=== PATIENT | male | born 1960 | race Caucasian/White ===

== ENCOUNTER 2018-02-16 23:24 | Inpatient (IN) ==
--- NOTE | 2018-02-16 23:43 | Emergency Department Note ---
Disposition Clinical Impression: Cellulitis, Lower extremity edema, Maintenance chemotherapy Disposition: Admitted As Inpatient Condition: Undetermined General Adult HPI - General Chief complaint: ED Extremity Problem,Nontraumatic Stated complaint: PCP sent for multiple complaints Time Seen by Provider: 02/16/18 23:28 Source: patient Limitations: no limitations - History of Present Illness Pain Scale: 0 - Related Data Home Medications Medication Instructions Recorded Confirmed Apixaban [Eliquis] 5 mg PO BID 02/17/18 02/17/18 Enalapril Maleate [Vasotec] 5 mg PO BID 02/17/18 02/17/18 Erlotinib HCl [Tarceva] 100 mg PO DAILY 02/17/18 02/17/18 Gabapentin [Neurontin] 600 mg PO TID PRN 02/17/18 02/17/18 HYDROcodone/Acet 5/325 mg [[place] 1 - 2 tab PO Q4-6H PRN 02/17/18 02/17/18 5-325 mg] LORazepam [Ativan] 1 mg PO DAILY PRN 02/17/18 02/17/18 Sulfamethoxazole/Trimeth DS 1 tab PO BID 02/17/18 02/17/18 [Bactrim Ds] Valacyclovir HCl [Valtrex] 1,000 mg PO Q12H PRN 02/17/18 02/17/18 Allergies Allergy/AdvReac Type Severity Reaction Status Date / Time acetaminophen [From Percocet] Allergy Itching Verified 02/16/18 23:30 Oxycodone [From Percocet] Allergy Itching Verified 02/16/18 23:30 Penicillins Allergy Hives Verified 02/16/18 23:30 cisplatin AdvReac See Verified 02/16/18 23:30 Comments Past Medical History - Past Medical History Medical history: Reports: cancer, cardiomyopathy Psychiatric history: Reports: anxiety, depression - Social History Smoking Status: Former smoker Alcohol use: Reports: rarely Drug use: Reports: none Physical Exam - General Limitations: no limitations General appearance: alert, in no apparent distress Course Vital Signs Temperature 98.0 F 02/16/18 23:30 Pulse Rate 129 02/16/18 23:30 Respiratory Rate 18 02/16/18 23:30 Blood Pressure 108/65 02/16/18 23:30 O2 Sat by Pulse Oximetry 100 02/16/18 23:30 Temperature 97.8 F 02/17/18 14:39 Pulse Rate 76 02/17/18 14:39 Respiratory Rate 14 02/17/18 14:39 Blood Pressure 103/60 02/17/18 14:39 O2 Sat by Pulse Oximetry 92 02/17/18 14:39 Oxygen Delivery Oxygen Delivery Room Air Medical Decision Making - Lab Data Result diagrams: 02/17/18 00:05 02/17/18 00:05 Lab Results 02/17/18 02/17/18 02/17/18 Range/Units 00:05 00:05 00:05 WBC 9.6 (4.3-11.1) K/mcL RBC 4.79 (4.19-5.50) M/mcL Hgb 14.3 (12.9-16.9) g/dL Hct 42.9 (37.5-50.1) % MCV 89.6 (83.0-100.0) fL MCH 29.9 (28.0-33.3) pg MCHC 33.3 (31.6-35.5) g/dL RDW 13.2 (11.5-14.5) % Plt Count 215 (140-400) K/mcL MPV 10.0 (9.4-12.4) fL Immature Gran % 0.7 (0-4) % Seg Neutrophils % 69.7 % Lymphocytes % 16.6 % Monocytes % 8.7 % Eosinophils % 3.3 % Basophils % 1.0 % Neutrophils # 6.7 (1.6-8.9) K/mcL Lymphocytes # 1.6 (0.6-4.6) K/mcL Monocytes # 0.8 (0.0-1.3) K/mcL Eosinophils # 0.3 (0.0-0.6) K/mcL Basophils # 0.1 (0.0-0.2) K/mcL Sodium 136 (136-145) mEq/L Potassium 3.9 (3.5-5.1) mEq/L Chloride 100 (98-107) mEq/L Carbon Dioxide 28 (23-29) mEq/L BUN 14 (6-20) mg/dL Creatinine 1.23 (0.70-1.30) mg/dL Est GFR ( Amer) > 60 (> 60) Est GFR (Non-Af Amer) > 60 (> 60) BUN/Creatinine Ratio 11 (6-26) Glucose 106 H (70-105) mg/dL Calculated Osmolality 283 (280-300) Lactic Acid 1.3 (0.5-2.2) mmol/L Calcium 9.6 (8.6-10.3) mg/dL Attestation Statement - Attestation Attestation: I examined this patient and my medical decision-making was reviewed with the Resident Physician. I agree with the documented findings, disposition and treatment plan as described except to the extent set forth below. Face to face time provided Patient to ED at the recommendation of his PCP. Recent wound cx + for MRSA. Patient currently taking antibiotics. Patient has localized cellulitis to the medial aspect of her left ankle and medial aspect of right elbow.
[2018-02-16] MEDS ORDERED: *HR* Morphine Immed Rel 30 MG TABLET PO STA (23:47)
[2018-02-16] MEDS ORDERED: 0.9 % Sodium Chloride 1,000 ML IVC ONE (23:47)
[2018-02-16] MEDS ORDERED: Isovue-370 500 ML INFUS..BTL IV ONE (23:47)
--- NOTE | 2018-02-16 23:50 | Emergency Department Note ---
Disposition Clinical Impression: Lower extremity edema, Maintenance chemotherapy Cellulitis Qualifiers: Site of cellulitis: extremity Site of cellulitis of extremity: lower extremity Laterality: left Qualified Code(s): L03.116 - Cellulitis of left lower limb Disposition: Admitted As Inpatient Condition: Undetermined Referrals: Francesco Denton MD [Primary Care Provider] - Forms: ED Satisfaction Letter Time of Disposition: 02:25 Extremity Problem HPI - General Chief complaint: ED Extremity Problem,Nontraumatic Stated complaint: PCP sent for multiple complaints Time Seen by Provider: 02/16/18 23:28 Source: patient Mode of arrival: private vehicle Limitations: no limitations Nursing Notes Reviewed: Yes Vital Signs Reviewed: Yes - History of Present Illness HPI Narrative: 57-year-old male with history of non-small cell carcinoma taking daily chemotherapy arrives to the emergency department after scraping his left leg on a rock. The patient states that he developed abscesses across his body including right elbow, left lower extremity. The worse is in his left ankle where his injury occurred. The patient PCP perform a culture of the wounds and was noted to be MRSA positive. The patient is noted to be mildly febrile at home with chills and generalized weakness. The patient is noted to be tachycardic upon arrival to the emergency department. The patient was sent by PCP 2 admitted with IV anabiotic's. The patient denies any other complaints. He is supposed to receive an MRI in 24 hours for an evaluation with concern for possible abscess in his left lower extremity ankle bone. Patient denies any other complaints at this time. He is resting comfortably and able to ambulate with crutches. The patient does obvious swelling in left lower extremity and multiple draining abscesses across his body. Pain Scale: 0 - Related Data Allergies Allergy/AdvReac Type Severity Reaction Status Date / Time acetaminophen [From Percocet] Allergy Itching Verified 02/16/18 23:30 Oxycodone [From Percocet] Allergy Itching Verified 02/16/18 23:30 Penicillins Allergy Hives Verified 02/16/18 23:30 cisplatin AdvReac See Verified 02/16/18 23:30 Comments All systems ED: reviewed and negative except as stated. Constitutional: Reports: chills, weakness. Denies: fever ENT ED: Denies: dysphagia Cardiovascular: Denies: chest pain Respiratory: Denies: dyspnea Gastrointestinal: Denies: abdominal pain Genitourinary: Denies: urgency, dysuria Musculoskeletal: Reports: joint swelling, arthralgia, myalgia. Denies: back pain, neck pain Integumentary: Reports: lesions. Denies: rash Neurological: Denies: headache, numbness, paresthesias Past Medical History - Past Medical History Attestation: Yes The following information was validated with the patient. Source: patient, old records reviewed Medical history: Reports: cancer, cardiomyopathy Surgical history: Reports: non-contributory Psychiatric history: Reports: anxiety, depression - Social History Smoking Status: Former smoker Alcohol use: Reports: rarely Drug use: Reports: none Physical Exam - General Limitations: no limitations General appearance: alert, in no apparent distress - Head Head exam: atraumatic, normocephalic, normal inspection - Eye Eye exam: Present: normal appearance, PERRL, EOMI - ENT ENT exam: normal exam, normal oropharynx, mucous membranes moist - Neck Neck exam: Present: normal inspection, full ROM, trachea midline - Chest Chest inspection: Present: normal inspection, symmetric chest wall rise - Respiratory Respiratory exam: Present: normal lung sounds bilaterally - Cardiovascular Cardiovascular exam: Present: normal rhythm, tachycardia, normal heart sounds - Abdominal Exam Abdominal exam: Present: soft, Non-Tender. Absent: tenderness, distention, guarding, rebound, rigidity - Extremities Exam Extremities exam: Present: full ROM, tenderness (Left ankle) - Neurological Exam Neurological exam: Present: alert, oriented X3 - Skin Skin exam: Present: warm, dry, intact, normal color, other (Patient has multiple abscesses across bilateral upper and lower extremities. All of her training at this time. Mild tenderness noted. Overlying cellulitis noted. No drainable abscess that is noted. Patient has ecchymosis and erythema to left ankle with lesions noted on the medial aspect.) Course Vital Signs Temperature 98.0 F 02/16/18 23:30 Pulse Rate 129 02/16/18 23:30 Respiratory Rate 18 02/16/18 23:30 Blood Pressure 108/65 02/16/18 23:30 O2 Sat by Pulse Oximetry 100 02/16/18 23:30 Temperature 97.8 F 02/16/18 23:50 Pulse Rate 76 02/17/18 01:22 Respiratory Rate 18 02/17/18 01:22 Blood Pressure 105/58 02/17/18 01:22 O2 Sat by Pulse Oximetry 95 02/17/18 01:22 Oxygen Delivery Oxygen Delivery Room Air Extremity Problem, Nontraumati - MDM Narrative Medical decision making narrative: Patient's workup in the emergency department demonstrates concerning findings for cellulitis. The patient appears septic as he is tachycardic and has had a fever at home. The patient has a source with concern for cellulitis of right elbow, left ankle, left lower extremity. Patient has a large amount of swelling noted as well. The patient CT scan of his left lower extremity demonstrates no signs of osteomyelitis both concern for abscess versus phlegmon. Given the lack of fluid on visualization, this is likely phlegmon. The patient was administered vancomycin IV here in the emergency department with known cultures to reveal MRSA. The patient had blood cultures performed. Lactate was within normal limits. Given the patient's vital signs and a source of infection combined with positive MRSA wound cultures and the fact the patient is currently on chemotherapy, we will admit the patient to the hospital to receive IV anabiotic's overnight. The patient agrees to plan of care. No further questions or concerns noted at this time, accepted by Dr. Alegria. - Lab Data Lab results reviewed: Yes I reviewed the patient's lab results. Result diagrams: 02/17/18 00:05 02/17/18 00:05 Lab Results 02/17/18 02/17/18 02/17/18 Range/Units 00:05 00:05 00:05 WBC 9.6 (4.3-11.1) K/mcL RBC 4.79 (4.19-5.50) M/mcL Hgb 14.3 (12.9-16.9) g/dL Hct 42.9 (37.5-50.1) % MCV 89.6 (83.0-100.0) fL MCH 29.9 (28.0-33.3) pg MCHC 33.3 (31.6-35.5) g/dL RDW 13.2 (11.5-14.5) % Plt Count 215 (140-400) K/mcL MPV 10.0 (9.4-12.4) fL Immature Gran % 0.7 (0-4) % Seg Neutrophils % 69.7 % Lymphocytes % 16.6 % Monocytes % 8.7 % Eosinophils % 3.3 % Basophils % 1.0 % Neutrophils # 6.7 (1.6-8.9) K/mcL Lymphocytes # 1.6 (0.6-4.6) K/mcL Monocytes # 0.8 (0.0-1.3) K/mcL Eosinophils # 0.3 (0.0-0.6) K/mcL Basophils # 0.1 (0.0-0.2) K/mcL Sodium 136 (136-145) mEq/L Potassium 3.9 (3.5-5.1) mEq/L Chloride 100 (98-107) mEq/L Carbon Dioxide 28 (23-29) mEq/L BUN 14 (6-20) mg/dL Creatinine 1.23 (0.70-1.30) mg/dL Est GFR ( Amer) > 60 (> 60) Est GFR (Non-Af Amer) > 60 (> 60) BUN/Creatinine Ratio 11 (6-26) Glucose 106 H (70-105) mg/dL Calculated Osmolality 283 (280-300) Lactic Acid 1.3 (0.5-2.2) mmol/L Calcium 9.6 (8.6-10.3) mg/dL - Radiology Data Radiology results reviewed: Yes I reviewed the patient's radiology results. Lower Extremity CT 02/17/18 23:47 IMPRESSION: 1. No radiographic evidence for osteomyelitis. 2. The tiny low-attenuation focus in the superficial subcutaneous tissues overlying the medial malleolus could represent abscess or phlegmon. 3. There is a metallic foreign body in the plantar surface of the calcaneus. D/ / Olegario Montoya MD / Olegario Montoya MD Interpreting Provider: Olegario Montoya MD
[2018-02-17 00:22] LABS: Basophils # 0.1 K/mcL (0.0-0.2); Eosinophils # 0.3 K/mcL (0.0-0.6); Eosinophils % 3.3 %; Hematocrit 42.9 % (37.5-50.1); Hemoglobin 14.3 g/dL (12.9-16.9); Immature Granulocytes % 0.7 % (0-4); Lymphocytes # 1.6 K/mcL (0.6-4.6); Lymphocytes % 16.6 %; Mean Corpuscular HGB Conc 33.3 g/dL (31.6-35.5); Mean Corpuscular Hemoglobin 29.9 pg (28.0-33.3); Mean Corpuscular Volume 89.6 fL (83.0-100.0); Monocytes # 0.8 K/mcL (0.0-1.3); Monocytes % 8.7 %; Neutrophils # 6.7 K/mcL (1.6-8.9); Platelet Count 215 K/mcL (140-400); Red Blood Count 4.79 M/mcL (4.19-5.50); Red Cell Distribution Width 13.2 % (11.5-14.5); Segmented Neutrophils % 69.7 %
[2018-02-17 00:39] LABS: BUN/Creatinine Ratio 11 (6-26); Blood Urea Nitrogen 14 mg/dL (6-20); Calcium 9.6 mg/dL (8.6-10.3); Carbon Dioxide 28 mEq/L (23-29); Chloride 100 mEq/L (98-107); Glucose 106 mg/dL (70-105); Osmolality,Calculated 283 (280-300); Potassium 3.9 mEq/L (3.5-5.1); Sodium 136 mEq/L (136-145); eGFR For Non-African Americans > 60 (> 60)
[2018-02-17] MEDS ORDERED: Levofloxacin 750 MG/150 ML 750 MG/150 ML BAG IVPB ONE (02:23)
[2018-02-17] MEDS ORDERED: Naloxone 0.4 MG/ML INJ IVP PRN (04:39)
[2018-02-17] MEDS ORDERED: Acetaminophen 325 MG TABLET PO PRN (04:39)
[2018-02-17] MEDS: traMADol 50 MG TABLET PO PRN ×3 (05:01→19:42)
[2018-02-17] MEDS ORDERED: *HR* OxyCODONE/APAP 5/325 TABLET PO PRN (08:10)
[2018-02-17] MEDS ORDERED: Fluticasone Propionate Nasal 50 MCG/SPRAY BOTTLE NS PRN (08:10)
[2018-02-17] MEDS: Gabapentin 300 MG CAPSULE PO SCH ×3 (09:28→21:20)
[2018-02-17] MEDS: FLUoxetine 20 MG CAPSULE PO SCH (09:28)
[2018-02-17] MEDS: Apixaban 5 MG TABLET PO SCH ×2 (09:29→21:20)
--- NOTE | 2018-02-17 11:15 | Internal Med History&Physical ---
Date of Encounter: 02/17/18 Time of Encounter: 08:20 Internal Medicine - H&P: HPI Chief complaint: Multiple skin abscesses Admitted From: Emergency Dept Plans for Post Hospital Care: Home History of present illness: Mr. Barajas is a 57 year old male with non-small cell carcinoma who is on chemotherapy with Tarceva presented to the emergency department after having failed outpatient antibiotic treatment for multiple boils in his upper and lower extremities. Patient states that he developed abscesses on the right elbow left lower extremity, lateral thigh, medial ankle which started roughly about 2 weeks ago. Some of them broke and started draining. He sought help from his primary care physician on Tuesday who was really concerned about left lower extremity abscess. He was started on oral Bactrim which she has been taking since Tuesday but his abscesses continued to get worse. His erythema around the abscesses have now worsened and he also had a fever at home which she states was 101. In the ER when he presented he was initially tachycardic on arrival and he was started on IV Levaquin and vancomycin. When he saw his primary care physician on Tuesday he also had a culture drawn from the abscess on the left medial ankle after a started draining and it grew MRSA. The patient to his knowledge does not have a history of MRSA and this is the first time this has happened. He denied any new chills but does claim of some lethargy and fatigue. He denies any chest pain, shortness of breath, headaches, He does state that most of these lesions are very painful and rated his pain level at 8/10 defined a sharp pain upon touching any of these wounds and no other aggravating or relieving factors Past Med Surg Social Fam HX - Past Medical History Medical history: cancer, cardiomyopathy Additional medical history: lung cancer Psychiatric history: anxiety, depression - Past Surgical History Surgical History: non-contributory - Social History Smoking Status: Former smoker Alcohol use: rarely Drug use: none - Additional Family History Additional family history: No significant family history of skin boils in other family members Internal Medicine - H&P: Meds Apixaban [Eliquis] 5 mg PO BID 02/17/18 [History] Enalapril Maleate [Vasotec] 5 mg PO BID 02/17/18 [History] Erlotinib HCl [Tarceva] 100 mg PO DAILY 02/17/18 [History] Gabapentin [Neurontin] 600 mg PO TID PRN 08/24/18 [History] HYDROcodone/Acet 5/325 mg [[place] 5-325 mg] 1 - 2 tab PO Q4-6H PRN 02/17/18 [ History] LORazepam [Ativan] 1 mg PO DAILY PRN 02/17/18 [History] Sulfamethoxazole/Trimeth DS [Bactrim Ds] 1 tab PO BID 02/17/18 [History] Valacyclovir HCl [Valtrex] 1,000 mg PO Q12H PRN 02/17/18 [History] 3 Allergy/AdvReac Type Severity Reaction Status Date / Time acetaminophen [From Percocet] Allergy Itching Verified 02/16/18 23:30 Oxycodone [From Percocet] Allergy Itching Verified 02/16/18 23:30 Penicillins Allergy Hives Verified 02/16/18 23:30 cisplatin AdvReac See Verified 02/16/18 23:30 Comments All Systems PM: A 10-system review of systems was performed and is negative for pertinent findings except as documented above in the HPI. - Constitutional Vitals: Temp Pulse Resp BP Pulse Ox 98.0 F 82 16 114/71 95 02/17/18 10:17 02/17/18 10:17 02/17/18 10:17 02/17/18 10:17 02/17/18 10:17 Exam: GENERAL: Alert, moderate distress, cooperative EYES: PERRLA, EOMI EARS: External ears normal, canals clear Skin exam-multiple abscesses/surrounding cellulitis areas most prominent in the left lower extremity. Major ones are on the medial left ankle which is surrounded by a 6 cm of erythema and indurated skin which is warm to touch, and other abscess did on the lateral aspect of the left lower extremity. Most of them have scab on top of it and the patient states these have already drained Right upper extremity bandaged but clear oozing can be seen from through the bandage. Not removed due to patient preference OROPHARYNX: Lips, mucosa, and tongue normal. Teeth and gums normal. Oropharynx normal. NECK: No jugulovenous distention, No carotid bruits, Carotid pulse normal contour, Supple LUNGS: Lungs clear to auscultation, Good diaphragmatic excursion CARDIAC: Normal S1 and S2; no rubs, murmurs, or gallops ABDOMEN: Abdomen soft, non-tender, BS normal, No masses or organomegaly EXTREMITIES: See details above NEURO: . Reflexes normal and symmetric. Sensation grossly intact, Cranial nerves II-XII intact PULSES: 2+ radial, 2+ carotid Rest of the exam is non contributory Internal Med - H&P Results - Labs CBC & Chem 7: 02/17/18 00:05 02/17/18 00:05 - Impressions ITS Impressions Lower Extremity CT 02/17/18 23:47 IMPRESSION: 1. No radiographic evidence for osteomyelitis. 2. The tiny low-attenuation focus in the superficial subcutaneous tissues overlying the medial malleolus could represent abscess or phlegmon. 3. There is a metallic foreign body in the plantar surface of the calcaneus. D/ / Olegario Montoya MD / Olegario Montoya MD Interpreting Provider: Olegario Montoya MD - Diagnostic Studies Other Images Status: image reviewed by me (CT scan of the left lower extremity without contrast. No definitive evidence for osteomyelitis and small phlegmon over the left medial malleolus) - Assessment and plan (1) Infection of skin due to methicillin resistant Staphylococcus aureus (MRSA) Current Visit: Yes Status: Acute Assessment and plan: Patient has multiple skin abscesses and one of them has already grown MRSA as an outpatient on a culture. he has been placed on Bactrim as an outpatient since Tuesday but has failed 4 days of oral outpatient therapy and has now been admitted for IV antibiotics He initially presented with tachycardia but normal lactic acid and a fever which was documented at home but not in the ER blood cultures have been sent and antibiotics-vancomycin IV has been started. Consult pharmacy for dosing. I will also obtain ID consult given the patient's immunocompromised status to further tailor his antibiotic regimen. Off note to be not only have to treat him in house but he may need outpatient suppressive therapy because he will continue to be immunocompromised (2) Cellulitis Current Visit: Yes Status: Acute Assessment and plan: See plan above Qualifiers: Site of cellulitis: extremity Site of cellulitis of extremity: lower extremity Laterality: left Qualified Code(s): L03.116 - Cellulitis of left lower limb (3) Maintenance chemotherapy Current Visit: Yes Status: Acute Assessment and plan: History of non-small cell lung cancer. He is on daily outpatient Tarceva. I will hold it for right now due to acute multiple abscesses and he may need to resume it as an outpatient. - Time Spent With Patient Total time spent is greater than 50% in coordination of care (as documented) at patient's floor/unit and/or counseling patient: Greater than 35 minutes
[2018-02-17] MEDS ORDERED: *HR* FentaNYL (PF) 100 MCG/2 ML VIAL IVP STA (13:47)
[2018-02-17] MEDS ORDERED: Ondansetron 4 MG/2 ML VIAL IVP STA (13:47)
--- NOTE | 2018-02-17 14:35 | Event Note ---
Date of Encounter: 02/17/18 Time of Encounter: 14:28 Mr Barajas is a 57 year old male with a history of non-small cell lung cancer. He reported that it was in remession, but recently he has had a 40 lb weight-loss without explanation. He presented on 02/17/2018 with multiple abscess in varying degree (5 total, 2 on the medial and lateral left ankle, one on left upper lateral thigh, one on the left lateral calf, and one on the right mid proximal forearm near the elbow). Surgery was consulted for an I&D of this area only and therefore an event note is placed. Surveillance of the remaining for areas notes cellulitis and scabs but no fluctuance. ABSCESS INCISION AND DRAINAGE NOTE INDICATION: Abscess manifested as a tender, swollen fluctuant mass in the superficial subcutaneous tissue. INFORMED CONSENT: The risks and benefits of the procedure including incomplete drainage, scarring, infection and bleeding was explained and the patient verbalized their understanding and wished to proceed with the procedure. PROCEDURE: The area of greatest fluctuance was identified, prepped, and draped in a sterile fashion. Local anesthetic (10 MLs of 2% lidocaine) was introduced subcutaneously over the area of greatest fluctuance. A linear incision was then made over the area of greatest fluctuance, with immediate return of a large amount of purulent material. The wound was explored with a hemostat to break up loculations and irrigated with 40MLs saline solution. Once the wound was explored, cleaned, and irrigated, 1/4 inch iodoform gauze packing was placed loosely in the wound. A dressing was then applied. FINDINGS: Purulent drainage. EBL: <5 mL COMPLICATIONS: None. Daily Wound Care: remove dressing and packing. Wash with antibacterial soap. Repack with 1/4 inch iodoform gauze on 02/18 and 02/19. Begin packing with 1/4 inch plain gauze on 02/20/2018. Antibiotic management and further clinical course per primary team. Surgery will sign off at this time. If patient is discharged prior to Tuesday02/20/2018, he can follow-up in the office with Radha Vernon on 02/28/2018 at 3:30 PM. Signature: Radha Vernon, ALPHONSO, WORK[employer] COMPENSATION COORDINATOR-C
--- NOTE | 2018-02-17 14:55 | Infectious Disease Consult ---
Date of Encounter: 02/17/18 Time of Encounter: 14:00 Assessment and Plan (1) Abscess Status: Acute Assessment and plan: Location: RUE. Causative organism: likely MRSA. Recommend general surgery to evaluate for possible I & D. Continue Vancomycin IV. Pharmacy to dose. Goal trough ~15. (2) Cellulitis Status: Acute Assessment and plan: Location: Left ankle. Causative organism: MRSA. Likely secondary to recent traumatic injury and immunosuppression. CT of the LE showed findings consistent with cellulitis and abscess vs. phlegmon. Check ESR and CRP. Consult Podiatry. Continue Vancomycin IV. Pharmacy to dose. Goal trough ~15. Duration of treatment depends on the clinical picture. Monitor renal function and for drug toxicity and dose-adjust antibiotics. Qualifiers: Site of cellulitis: extremity Site of cellulitis of extremity: lower extremity Laterality: left Qualified Code(s): L03.116 - Cellulitis of left lower limb (3) Maintenance chemotherapy Status: Acute (4) Lung cancer Status: Acute Assessment and plan: Non-small cell lung cancer diagnosed in 2007. Currently on maintenance oral Terceva. Imaging in April negative for mets. Qualifiers: Laterality: unspecified laterality Lung location: unspecified part of lung Qualified Code(s): C34.90 - Malignant neoplasm of unspecified part of unspecified bronchus or lung Infectious Disease HPI - Data of Consult Patient: new to practice Consult date: 02/17/18 Requesting Physician: Celso Alegria MD Primary Care Provider: Francesco Denton MD - Consult Narrative Reason for consult: Abscesses History of present illness: Mr. Barajas is a 57 year old male with a past medical history of non-small cell lung cancer diagnosed back in 2007 who follows at the [facility] currently on daily oral Tarceva, cardiomyopathy, peripheral neuropathy secondary to chemotherapy, anxiety, and depression. The patient was admitted to the hospital February 16 for abscess to the left ankle and right elbow. We are consulted February 17 for further antibiotic recommendations. Briefly, the patient a 57-year-old male with past medical history as stated above. He sustained an injury to the left ankle last week while in [place] and developed an abscess and erythema to the medial aspect of the left ankle as well as a smaller area to the anterior aspect of the left ankle. Around the same time, he developed an abscess to the right upper arm as well. He states he saw his PCP on Tuesday to cultures to the left ankle wounds and they grew out MRSA. He was started on Bactrim on Tuesday as well, but has had progression of his symptoms and was advised by his PCP to come to the ER for evaluation. Upon arrival to the ER, the patient was afebrile. He was tachycardic, but otherwise hemodynamically stable. He had a CT of the left lower extremity that was negative for osteomyelitis, but did show a possible abscess versus phlegmon over the medial malleolus as well as a foreign body to the plantar aspect of the calcaneus. Blood cultures were obtained 2 sets and are pending. He is given Vanco and Levaquin and admitted to the hospital for further evaluation. The patient has remained afebrile hemodynamically stable. His white blood cell count is normal. Lactic acid is 1.3. Currently, he is on IV vancomycin. We have been asked to evaluate and make further recommendations. During my exam today, the patient endorsed a history as stated above. He denies any fevers or chills or rigors. He denies any headache or neck pain. He denies any congestion, earache, or sore throat. He denies any chest pain, shortness of breath, or cough. He denies any nausea, vomiting, diarrhea, or constipation. He denies abdominal pain or urinary complaints and states his appetite is okay. He does report that the left ankle joint is swollen and painful. He denies any purulent drainage from the left ankle lesion and states scabbed most the time. He does report pain to the abscess of the right upper extremity, but denies pain in the elbow joint. He reports purulent drainage from that abscess as well. He denies any oral thrush or additional skin lesions. He lives at home alone. He is disabled and does not work outside the home. He denies any recent travel except to [place] where the injury occurred. He states he is up-to-date on his tetanus shot. He denies any known infectious diseases. He denies any pet or animal exposure to the affected areas. Denies Tobacco, alcohol, or illicit drug use. CC: Celso Alegria MD Past Med Surg Social Fam HX - Past Medical History Attestation: Yes The following information was validated with the patient. Source: patient, old records reviewed Medical history: cancer (Non-small cell lung cancer), cardiomyopathy Additional medical history: lung cancer Psychiatric history: anxiety, depression - Past Surgical History Surgical History: non-contributory - Social History Smoking Status: Former smoker Alcohol use: rarely Drug use: none Occupational status: disabled Current living situation: Home - Independent Activity Level: Independent ambulation Recent Out of Country Travel Within the Last 8 Weeks: No Exposure or Possible Exposure to Illness During Travel: No Infectious Disease-CN:Meds Apixaban [Eliquis] 5 mg PO BID 02/17/18 [History] Enalapril Maleate [Vasotec] 5 mg PO BID 02/17/18 [History] Erlotinib HCl [Tarceva] 100 mg PO DAILY 02/17/18 [History] Gabapentin [Neurontin] 600 mg PO TID PRN 02/17/18 [History] HYDROcodone/Acet 5/325 mg [[place] 5-325 mg] 1 - 2 tab PO Q4-6H PRN 02/17/18 [ History] LORazepam [Ativan] 1 mg PO DAILY PRN 02/17/18 [History] Sulfamethoxazole/Trimeth DS [Bactrim Ds] 1 tab PO BID 02/17/18 [History] Valacyclovir HCl [Valtrex] 1,000 mg PO Q12H PRN 02/17/18 [History] 3 Allergy/AdvReac Type Severity Reaction Status Date / Time acetaminophen [From Percocet] Allergy Itching Verified 02/16/18 23:30 Oxycodone [From Percocet] Allergy Itching Verified 02/16/18 23:30 Penicillins Allergy Hives Verified 02/16/18 23:30 cisplatin AdvReac See Verified 02/16/18 23:30 Comments All systems: reviewed and no additional remarkable complaints except as stated Exam - Constitutional Vitals: Temp Pulse Resp BP Pulse Ox 97.8 F 76 14 103/60 92 02/17/18 14:39 02/17/18 14:39 02/17/18 14:39 02/17/18 14:39 02/17/18 14:39 General appearance: average body habitus, cooperative, no acute distress - Head Head exam: Present: atraumatic, normal inspection, normocephalic - Eye Eye exam: Present: EOMI, normal appearance, PERRL Pupils: Present: normal accommodation - ENT ENT exam: Present: mucous membranes moist - Neck Neck exam: Present: normal inspection - Respiratory Respiratory exam: Present: CTAB. Absent: rales, respiratory distress, rhonchi, wheezes - Cardiovascular Cardiovascular exam: Present: RRR, +S1, +S2 - GI/Abdominal GI/Abdominal exam: Present: normal bowel sounds, soft. Absent: distended, tenderness - Extremities Exam Extremities exam: Present: joint swelling (left ankle), pedal edema (1+ LLE), tenderness (left ankle) Additional comments: Abscess noted to the RUE with purulent drainage and surrounding erythema. Scabbed lesion with surrounding erythema noted to the medial aspect of the left ankle. Pinpoint scabbed lesion with very mild erythema noted to the anterior aspect of the left ankle. ROM of the left ankle painful. No foot erythema. - Neurological Exam Neurological exam: Present: alert, oriented X3, no focal deficits - Psychiatric Psychiatric exam: Present: normal affect, normal mood - Skin Skin exam: Present: dry, intact, normal color, warm Infectious Disease CN: Results - Labs CBC & Chem 7: 02/17/18 00:05 02/17/18 00:05 - VTE Reasons for not Prescribing Prophylaxis: Not indicated-Anticoagulated or INR therapeutic Consult Discharge Plan - Plan Referrals: Francesco Denton MD [Primary Care Provider] -
[2018-02-17] MEDS ORDERED: Gadolinium Contrast Agent (WT Based) IV PRN (15:06)
--- NOTE | 2018-02-17 17:18 | Podiatry Consult Note ---
Date of Encounter: 02/17/18 Time of Encounter: 17:00 Assessment and Plan (1) Cellulitis Current visit: Yes Status: Acute Qualifiers: Site of cellulitis: extremity Site of cellulitis of extremity: lower extremity Laterality: left Qualified Code(s): L03.116 - Cellulitis of left lower limb (2) Abscess Current visit: Yes Status: Acute Patient seen and examined at bedside left medial ankle wound present x 3 weeks There is associated edema erythema warmth and pain associated with wound MRSA + and in isolation CT as noted below per physical exam possible abscess vs hematoma to site Continue current IV antibiotic therapy MRI ordered to further assess Apply adaptic 4x4 and kerlix to wound for comfort ID on board and managing antibiotic therapy. History of Present Illness HPI: Mr. Barajas is a 57 year old male Past Med Surg Social Fam HX - Past Medical History Medical history: cancer (Non-small cell lung cancer), cardiomyopathy Additional medical history: lung cancer Psychiatric history: anxiety, depression - Past Surgical History Surgical History: non-contributory - Social History Smoking Status: Former smoker Alcohol use: rarely Drug use: none Medications and Allergies Apixaban [Eliquis] 5 mg PO BID 02/17/18 [History] Enalapril Maleate [Vasotec] 5 mg PO BID 02/17/18 [History] Erlotinib HCl [Tarceva] 100 mg PO DAILY 02/17/18 [History] Gabapentin [Neurontin] 600 mg PO TID PRN 02/17/18 [History] HYDROcodone/Acet 5/325 mg [[place] 5-325 mg] 1 - 2 tab PO Q4-6H PRN 02/17/18 [ History] LORazepam [Ativan] 1 mg PO DAILY PRN 02/17/18 [History] Sulfamethoxazole/Trimeth DS [Bactrim Ds] 1 tab PO BID 02/17/18 [History] Valacyclovir HCl [Valtrex] 1,000 mg PO Q12H PRN 02/17/18 [History] 3 Allergy/AdvReac Type Severity Reaction Status Date / Time acetaminophen [From Percocet] Allergy Itching Verified 02/16/18 23:30 Oxycodone [From Percocet] Allergy Itching Verified 02/16/18 23:30 Penicillins Allergy Hives Verified 02/16/18 23:30 cisplatin AdvReac See Verified 02/16/18 23:30 Comments All Systems Reviewed: The remainder of the systems were reviewed and are negative Physical Exam - Constitutional Vitals: Temp Pulse Resp BP Pulse Ox 97.8 F 76 14 103/60 92 02/17/18 14:39 02/17/18 14:39 02/17/18 14:39 02/17/18 14:39 02/17/18 14:39 General appearance: average body habitus, cooperative, no acute distress Results - Labs Result Diagrams: 02/17/18 00:05 02/17/18 00:05 Labs: Abnormal lab results Glucose 106 mg/dL (70-105) H 02/17/18 00:05 All other labs normal. Consult Discharge Plan - Plan Referrals: Francesco Denton MD [Primary Care Provider] -
[2018-02-18] MEDS: traMADol 50 MG TABLET PO PRN ×3 (03:45→17:26)
[2018-02-18 04:09] LABS: Basophils # 0.1 K/mcL (0.0-0.2); Basophils % 1.2 %; Eosinophils # 0.4 K/mcL (0.0-0.6); Eosinophils % 6.2 %; Hematocrit 43.6 % (37.5-50.1); Hemoglobin 14.6 g/dL (12.9-16.9); Immature Granulocytes % 0.6 % (0-4); Lymphocytes # 1.6 K/mcL (0.6-4.6); Lymphocytes % 23.6 %; Mean Corpuscular HGB Conc 33.5 g/dL (31.6-35.5); Mean Corpuscular Hemoglobin 30.9 pg (28.0-33.3); Mean Corpuscular Volume 92.2 fL (83.0-100.0); Monocytes # 0.7 K/mcL (0.0-1.3); Monocytes % 10.3 %; Platelet Count 197 K/mcL (140-400); Red Blood Count 4.73 M/mcL (4.19-5.50); Segmented Neutrophils % 58.1 %
[2018-02-18 04:26] LABS: BUN/Creatinine Ratio 12 (6-26); Blood Urea Nitrogen 12 mg/dL (6-20); Carbon Dioxide 26 mEq/L (23-29); Chloride 104 mEq/L (98-107); Glucose 99 mg/dL (70-105); Osmolality,Calculated 282 (280-300); Sodium 136 mEq/L (136-145); eGFR For Non-African Americans > 60 (> 60)
[2018-02-18] MEDS: Apixaban 5 MG TABLET PO SCH ×2 (08:00→20:05)
[2018-02-18] MEDS: Gabapentin 300 MG CAPSULE PO SCH ×3 (08:00→20:04)
[2018-02-18] MEDS: FLUoxetine 20 MG CAPSULE PO SCH (08:00)
[2018-02-18] MEDS: *HR* FentaNYL (PF) 100 MCG/2 ML VIAL IVP PRN (13:57)
--- NOTE | 2018-02-18 16:27 | Internal Med Progress Note ---
Hospitalist Progress Note - Encounter Date of Encounter: 02/18/18 Time of Encounter: 11:40 - Subjective Interval History: Reports feeling well. No fever, chills, nausea, vomiting or diarrhea. Tolerates antibiotics well. Reports mild pain in right forearm at the site of abscess drainage. - Exam Vitals: Temp Pulse Resp BP Pulse Ox 97.9 F 74 14 100/60 98 02/18/18 14:49 02/18/18 14:49 02/18/18 14:49 02/18/18 14:49 02/18/18 14:49 Exam: General: Well-developed male lying comfortably in bed in no acute distress Skin: Warm and supple Chest: Normal thoracic expansion. Normal breath sounds. Clear to auscultation. Heart: Normal S1 & S2; rhythmic. No rubs or murmurs. Abdomen: Non-distended, soft and nontender Extremities: No clubbing, cyanosis or edema. No calf tenderness. Normal distal pulses. Full ROM; right distal forearm in surgical dressing with blood-stained gauze; left distal leg in surgical dressing; Neurological: Awake, alert and oriented to person, place and time. No focal deficits. Psych: Affect appropriate. - Assessment and Plan (1) Abscess Current Visit: Yes Status: Acute Assessment and Plan: Patient is noted to have multiple cutaneous abscesses with surrounding cellulitis, at least 5 per surgery note, 4 in left lower extremity and 1 in right upper extremity. Surgery consult appreciated, status post incision and drainage of right forearm abscess. Preliminary wound culture shows staph aureus. Wound culture from February 13 sent by his PCP, grows MRSA. Infectious diseases on board. Continue IV vancomycin for now. Patient will probably need home health services set up for continued wound care. Podiatry was consulted for possible left medial ankle abscess; CT left lower extremity shows possible abscess or phlegmon. MRI of left leg has been recommended, however cannot be done due to a metallic foreign body in the plantar surface of calcaneus. (2) Cellulitis Current Visit: Yes Status: Acute (3) Essential hypertension Current Visit: Yes Status: Chronic (4) Anxiety and depression Current Visit: Yes Status: Chronic (5) Lung cancer Current Visit: Yes Status: Chronic - Time Spent with Patient Total time spent is greater than 50% in coordination of care (as documented) at patient's floor/unit and/or counseling patient: Internal Medicine: Result - Labs CBC & Chem 7: 02/18/18 03:41 02/18/18 03:41 Labs: Short CBC 02/18/18 Range/Units 03:41 WBC 6.8 (4.3-11.1) K/mcL Hgb 14.6 (12.9-16.9) g/dL Hct 43.6 (37.5-50.1) % Plt Count 197 (140-400) K/mcL Neutrophils # 4.0 (1.6-8.9) K/mcL BMP 02/18/18 03:41 Sodium 136 Potassium 4.0 Chloride 104 Carbon Dioxide 26 BUN 12 Creatinine 0.97 Glucose 99 Calcium 9.0 - VTE Reasons for not Prescribing Prophylaxis: Not indicated-Anticoagulated or INR therapeutic Consult Discharge Plan - Plan Referrals: Francesco Denton MD [Primary Care Provider] - (2) Cellulitis Qualifiers: Site of cellulitis: extremity Site of cellulitis of extremity: lower extremity Laterality: left Qualified Code(s): L03.116 - Cellulitis of left lower limb (5) Lung cancer Qualifiers: Laterality: unspecified laterality Lung location: unspecified part of lung Qualified Code(s): C34.90 - Malignant neoplasm of unspecified part of unspecified bronchus or lung
[2018-02-19] MEDS: traMADol 50 MG TABLET PO PRN ×4 (02:14→21:25)
[2018-02-19] MEDS: Gabapentin 300 MG CAPSULE PO SCH ×3 (07:14→21:25)
[2018-02-19] MEDS: Apixaban 5 MG TABLET PO SCH ×2 (07:14→21:26)
[2018-02-19] MEDS: FLUoxetine 20 MG CAPSULE PO SCH (07:14)
[2018-02-19] MEDS: *HR* FentaNYL (PF) 100 MCG/2 ML VIAL IVP PRN (09:02)
--- NOTE | 2018-02-19 11:44 | Podiatry Progress Note ---
Date of Encounter: 02/19/18 Time of Encounter: 10:25 - Assessment and Plan (1) Cellulitis Current Visit: Yes Status: Acute cellulitis, improved on abx. has lung cancer on chemotherapy Discussed with patient my findings and recommendations for treatment. discussed CT scan. Clinically there is no evidence of an abscess, edema is down and the erythema significantly resolving. He may not be able to get an MRI to confirm no abscess due to metal object in his heel, I called MRI and waiting on them to call me back but this may be the case as the patient says he was told he could not have one by someone that came to his room because of this metal object in his heel. There is clinically no abscess to drainage and the subcutaneous abnormality on CT is likely the scabbed area from his injury. Would recommend close monitoring of wounds and continued wound care with adaptic , bactroban, 4x4 gauze and kerlix changed daily. Short course of oral antibiotics for his ankle may be sufficient but will leave definitive decision to infectious disease. Qualifiers: Site of cellulitis: extremity Site of cellulitis of extremity: lower extremity Laterality: left Qualified Code(s): L03.116 - Cellulitis of left lower limb Subjective Interval history: seen for f/u of cellulitis of left LE. Says his ankle looks significantly better as far as redness and swelling and he shows me a picture on his phone. Denies feeling like he had a f/c/n/v. Says his chemotherapy is on hold. He says he has a history of MRSA. says he was told there is metal in the bottom of his heel. does not recall when he ever stepped on something. Objective - Vital Signs Vital Signs: Vital Signs Temp Pulse Resp BP Pulse Ox 02/19/18 11:09 97.9 F 66 14 104/64 97 02/19/18 08:31 98.4 F 78 16 96/65 98 02/19/18 05:20 97.6 F 73 15 97/60 97 02/18/18 19:18 97.8 F 71 14 104/63 98 02/18/18 14:49 97.9 F 74 14 100/60 98 Intake and Output 02/18/18 02/19/18 02/19/18 23:59 07:59 15:59 Intake Total 240 / 240 550 / 550 360 / 360 Output Total 0 / 0 Balance 240 / 240 550 / 550 360 / 360 Intake: IV Fluids 250 / 250 Vancocin 1,500 MG In 0.9 % 250 / 250 Sodium Chloride 250 ML @ 166.67 mls/hr IVPB Q12H [facility] Rx#: [id number] Oral 240 / 240 300 / 300 360 / 360 Output: Urine 0 / 0 Other: Meal Dinner Breakfast Percent of Meal Consumed 100% 100% # Voids 1 1 - Exam Exam: well developed and nourished male in no acute distress Capillary refill time intact all digits of the left foot. Left foot is warm to touch. There is minimal localized erythema around multiple abrasion sites of the left medial anterior ankle. There is no fluctuance. The areas are covered by a scab. There is some tenderness to touch over the scab areas. There is no purulence or drainage expressed. Sensation is intact to touch. no evicence of foreign body entry site. CT-no osteo, low attenuation subcutaneous tissue abnormality identified. - Lab Result Diagrams: 02/18/18 03:41 02/18/18 03:41 Labs: Microbiology, Last 48 Hours 02/17/18 14:30 Wound Culture - Preliminary Right Elbow Staphylococcus aureus 02/17/18 14:30 Gram Stain - Final Aspirate - VTE Reasons for not Prescribing Prophylaxis: Not indicated-Anticoagulated or INR therapeutic Consult Discharge Plan - Plan Referrals: Francesco Denton MD [Primary Care Provider] -
--- NOTE | 2018-02-19 14:42 | Internal Med Progress Note ---
Hospitalist Progress Note - Encounter Date of Encounter: 02/19/18 Time of Encounter: 11:15 - Subjective Interval History: Reports feeling well. No fever, chills, nausea, vomiting or diarrhea. Tolerates antibiotics well. denies new complaints; right elbow packing changed today; - Exam Vitals: Temp Pulse Resp BP Pulse Ox 97.9 F 66 14 104/64 97 02/19/18 11:09 02/19/18 11:09 02/19/18 11:09 02/19/18 11:09 02/19/18 11:09 Exam: General: Well-developed male sitting up in bed in no acute distress Skin: Warm and supple Chest: Normal thoracic expansion. Normal breath sounds. Clear to auscultation. Heart: Normal S1 & S2; rhythmic. No rubs or murmurs. Abdomen: Non-distended, soft and nontender Extremities: right elbow dressing dry and clean; - Assessment and Plan (1) Abscess Current Visit: Yes Status: Acute Assessment and Plan: Patient is noted to have multiple cutaneous abscesses with surrounding cellulitis, at least 5 per surgery note, 4 in left lower extremity and 1 in right upper extremity. Surgery consulted, status post incision and drainage of right forearm abscess. Preliminary wound culture shows staph aureus. Wound culture from February 13 sent by his PCP, grows MRSA. Infectious diseases on board. Continue IV vancomycin for now. Patient will probably need home health services set up for continued wound care. Podiatry was consulted for possible left medial ankle abscess; CT left lower extremity shows possible abscess or phlegmon. MRI of left leg has been recommended, however cannot be done due to a metallic foreign body in the plantar surface of calcaneus. continue local wound care; anticipate discharge in am after ID f/up; (2) Cellulitis Current Visit: Yes Status: Acute (3) Essential hypertension Current Visit: Yes Status: Chronic Assessment and Plan: patient noted to have low normal BP; will discontinue ACEI at this time; (4) Anxiety and depression Current Visit: Yes Status: Chronic (5) Lung cancer Current Visit: Yes Status: Chronic - Time Spent with Patient Total time spent is greater than 50% in coordination of care (as documented) at patient's floor/unit and/or counseling patient: Plan of Care Discussed with: patient Internal Medicine: Result - Labs CBC & Chem 7: 02/18/18 03:41 02/18/18 03:41 - VTE Reasons for not Prescribing Prophylaxis: Not indicated-Anticoagulated or INR therapeutic Consult Discharge Plan - Plan Referrals: Francesco Denton MD [Primary Care Provider] - (2) Cellulitis Qualifiers: Site of cellulitis: extremity Site of cellulitis of extremity: lower extremity Laterality: left Qualified Code(s): L03.116 - Cellulitis of left lower limb (5) Lung cancer Qualifiers: Laterality: unspecified laterality Lung location: unspecified part of lung Qualified Code(s): C34.90 - Malignant neoplasm of unspecified part of unspecified bronchus or lung
[2018-02-20 01:28] LABS: BUN/Creatinine Ratio 15 (6-26); Blood Urea Nitrogen 15 mg/dL (6-20); eGFR For Non-African Americans > 60 (> 60)
[2018-02-20] MEDS: Apixaban 5 MG TABLET PO SCH (08:21)
[2018-02-20] MEDS: Gabapentin 300 MG CAPSULE PO SCH ×2 (08:21→16:15)
[2018-02-20] MEDS: FLUoxetine 20 MG CAPSULE PO SCH (08:21)
[2018-02-20] MEDS: traMADol 50 MG TABLET PO PRN (08:27)
[2018-02-20] MEDS ORDERED: ROPIVACAINE HCL/PF 0.5% 30 ML VIAL ONE (09:54)
[2018-02-20] MEDS ORDERED: Bupivacaine/Clonidine Syringe 1 EACH SYRINGE ONE (09:54)
--- NOTE | 2018-02-20 14:47 | Infectious Disease Progress No ---
Date of Encounter: 02/20/18 Time of Encounter: 14:44 - Assessment and Plan (1) Abscess Status: Acute Location: RUE. Causative organism:MRSA. General surgery consulted. Status post bedside I & D 02/17/18. Purulent fluid drained and site packed. Cultures positive for MRSA. Clinically improved. Continue Vancomycin IV. Pharmacy to dose. Goal trough ~15. (day 4). Duration of treatment depends on the clinical picture, but likely a total of 14 days. Can likely transition to PO antibiotics when ready for discharge to complete the course of treatment. Monitor renal function and for drug toxicity and dose-adjust antibiotics. (2) Cellulitis Status: Acute Location: Left ankle. Causative organism: MRSA. Likely secondary to recent traumatic injury and immunosuppression. CT of the LE showed findings consistent with cellulitis and abscess vs. phlegmon. Check ESR and CRP.--> pending. Consult Podiatry. Appreciate recommendations. MRI of the LLE completed 02/20/18 showed mild subcutaneous edema of the distal left lower leg suggesting mild cellulitis as well as a small cutaneous.subcutaneous abscess along the medial aspect of the ankle measure 4 x 5 x 6mm in size with no evidence of deep soft tissue infection or abnormality of the bones. Await further recommendations from the podiatry team. Continue Vancomycin IV. Pharmacy to dose. Goal trough ~15. Duration of treatment depends on the clinical picture. Can likely transition to PO antibiotics as above when ready for discharge. Monitor renal function and for drug toxicity and dose-adjust antibiotics. Qualifiers: Site of cellulitis: extremity Site of cellulitis of extremity: lower extremity Laterality: left Qualified Code(s): L03.116 - Cellulitis of left lower limb (3) Maintenance chemotherapy Status: Acute (4) Lung cancer Status: Chronic Non-small cell lung cancer diagnosed in 2007. Currently on maintenance oral Terceva. Imaging in April negative for mets. Qualifiers: Laterality: unspecified laterality Lung location: unspecified part of lung Qualified Code(s): C34.90 - Malignant neoplasm of unspecified part of unspecified bronchus or lung - Subjective Interval history: Patient seen and examined. No acute events noted overnight. Patient states that overall he feels well and wants to go home. Denies fevers, chills, or rigors. Denies chest pain, shortness of breath, or cough. Denies nausea, vomiting, diarrhea, or constipation. Denies abdominal pain, urinary complaints, or appetite changes. Denies oral thrush or skin lesions. States the pain to the left ankle and right UE abscesses have improved. Infect Dis PN-Objective Data - Labs CBC & Chem 7: 02/18/18 03:41 02/20/18 00:54 Labs: Laboratory Results - last 24 hr 02/20/18 02/20/18 00:54 00:54 BUN 15 Creatinine 0.99 Est GFR ( Amer) > 60 Est GFR (Non-Af Amer) > 60 BUN/Creatinine Ratio 15 Vancomycin Trough 14 H Cultures: Cultures 02/17/18 14:30 Anaerobic Culture - Preliminary Aspirate At this time, no anaerobic growth is present. The culture will be finalized after 5 days of incubation. 02/17/18 14:30 Wound Culture - Final Right Elbow Methicillin Resistant S.aureus 02/17/18 14:30 Gram Stain - Final Aspirate - Impressions Impressions Lower Extremity MRI 02/20/18 15:06 IMPRESSION: Mild subcutaneous edema of the distal left lower leg suggesting mild cellulitis. Small cutaneous/subcutaneous abscess along the medial aspect of the ankle measuring 4 x 5 x 6 mm in size. No deep soft tissue infection. No acute abnormality of the bones. Magnetic susceptibility artifact in the calcaneus consistent with the metallic foreign body seen on prior CT. D/ / 02/20/2018 13:39:24 Rudolph Crews MD / robbi Interpreting Provider: Rudolph Crews MD Exam - Constitutional Vitals: Temp Pulse Resp BP Pulse Ox 97.7 F 78 16 95/61 99 02/20/18 07:13 02/20/18 07:13 02/20/18 07:13 02/20/18 07:13 02/20/18 07:13 General appearance: average body habitus, cooperative, no acute distress - Head Head exam: Present: atraumatic, normal inspection, normocephalic - Eye Eye exam: Present: EOMI, normal appearance, PERRL Pupils: Present: normal accommodation - ENT ENT exam: Present: mucous membranes moist - Neck Neck exam: Present: normal inspection - Respiratory Respiratory exam: Present: CTAB. Absent: rales, respiratory distress, rhonchi, wheezes - Cardiovascular Cardiovascular exam: Present: RRR, +S1, +S2 - GI/Abdominal GI/Abdominal exam: Present: normal bowel sounds, soft. Absent: distended, tenderness - Extremities Exam Extremities exam: Present: joint swelling (trace, left ankle), pedal edema ( Trace, left ankle), tenderness (left ankle) Additional comments: Left ankle erythema improved. Ulceration noted to the medial aspect of the left ankle has opened and is drainage small amount of purulent drainage. Right UE abscess noted with packing in place. Erythema resolved. Tenderness improved. Small amount of light yellow drainage noted on the dressing. Right elbow ROM WNL. - Neurological Exam Neurological exam: Present: alert, oriented X3, no focal deficits - Psychiatric Psychiatric exam: Present: normal affect, normal mood - Skin Skin exam: Present: dry, intact, normal color, warm - VTE Reasons for not Prescribing Prophylaxis: Not indicated-Anticoagulated or INR therapeutic Consult Discharge Plan - Plan Additional Instructions: F/up with Surgery- Radha Vernon in 1-2 weeks F/up with Podiatry in 1 week Referrals: Woundcare,Clinic [Other] (Follow up with in one week. Call for appointment. ) Radha Vernon CNP [Advanced Practice Nurse] - 02/28/18 3:30 pm Francesco Denton MD [Primary Care Provider] - Prescriptions: Doxycycline 100 mg PO BID #22 capsule Gauze Bandage [Curity] 1 each TP DAILY #1 bandage Gauze Bandage [Kerlix] 1 each TP DAILY #2 bandage Mupirocin [Bactroban Oint] 1 appl TP DAILY #1 tube - Attending Attestation I examined this patient and my medical decision-making was reviewed with Yee Dixon CNP. I agree with the documented findings, disposition and treatment plan as described except to the extent set forth below.
[2018-02-20 14:51] VITALS: BP 103/67
--- NOTE | 2018-02-20 15:14 | Discharge Summary ---
- NOTES TO OUTPATIENT PROVIDER Notes to Outpatient Provider: Multiple small skin wounds, largest in right elbow s/p I&D, MRSA infection. D/c on PO antibiotics; to f/up with Surgery and Podiatry clinic; Orders not resulted at time of discharge: Pending orders 02/17/18 14:30 Culture,Anaerobic [RM] Stat 02/20/18 14:50 CRP [C-Reactive Protein] Routine Erythrocyte Sedimentation Rate [HEME] Routine 02/21/18 13:00 Vancomycin,Trough Timed Date of Encounter: 02/20/18 Time of Encounter: 11:00 - Discharge Diagnosis (1) Abscess Priority: Primary Status: Acute (2) Cellulitis Priority: Primary Status: Acute Qualifiers: Site of cellulitis: extremity Site of cellulitis of extremity: lower extremity Laterality: left Qualified Code(s): L03.116 - Cellulitis of left lower limb (3) Essential hypertension Priority: Secondary Status: Chronic (4) Anxiety and depression Priority: Secondary Status: Chronic (5) Lung cancer Priority: Secondary Status: Chronic Qualifiers: Laterality: unspecified laterality Lung location: unspecified part of lung Qualified Code(s): C34.90 - Malignant neoplasm of unspecified part of unspecified bronchus or lung Hospital course: Mr. Barajas is a 57 year old male with the above medical problems, who was admitted due to multiple skin wounds in his left lower and right upper extremities. He was started on oral antibiotics by his PCP prior to this presentation, despite which his wounds began to worsen associated with some drainage. He was started on broad-spectrum IV antibiotics-vancomycin and Zosyn. Blood cultures remain negative. Wound cultures both from his PCP office and from this hospitalization grew MRSA. Surgery was consulted, patient underwent bedside incision and drainage of right forearm wound above his elbow, which needs daily packing and dressing. He will need to follow-up with surgery clinic after discharge. Podiatry was consulted for left ankle abscess. CT and MRI of left leg were completed, that showed a tiny subcentimeter subcutaneous abscess above the medial malleolus. Case discussed with podiatry, recommend local wound care and outpatient follow-up. Infectious diseases has been on board, agree with discharging patient on oral antibiotics-doxycycline. Patient is noted to have low normal blood pressure during this admission, home dose of lisinopril will be held at discharge. He is otherwise medically stable for discharge. Discharge discussed with: patient, nurse - Time Spent with Patient Total time spent providing and/or coordinating discharge services: Greater than 30 minutes (40 min) - Discharge Medications Prescriptions: Doxycycline 100 mg PO BID #22 capsule Gauze Bandage [Curity] 1 each TP DAILY #1 bandage Gauze Bandage [Kerlix] 1 each TP DAILY #2 bandage Mupirocin [Bactroban Oint] 1 appl TP DAILY #1 tube Home Medications: Apixaban [Eliquis] 5 mg PO BID 02/17/18 [History] Erlotinib HCl [Tarceva] 100 mg PO DAILY 02/17/18 [History] Gabapentin [Neurontin] 600 mg PO TID PRN 02/17/18 [History] HYDROcodone/Acet 5/325 mg [[place] 5-325 mg] 1 - 2 tab PO Q4-6H PRN 02/17/18 [ History] LORazepam [Ativan] 1 mg PO DAILY PRN 02/17/18 [History] Valacyclovir HCl [Valtrex] 1,000 mg PO Q12H PRN 02/17/18 [History] Doxycycline 100 mg PO BID #22 capsule 02/20/18 [Rx] Gauze Bandage [Curity] 1 each TP DAILY #1 bandage 02/20/18 [Rx] Gauze Bandage [Kerlix] 1 each TP DAILY #2 bandage 02/20/18 [Rx] Mupirocin [Bactroban Oint] 1 appl TP DAILY #1 tube 02/20/18 [Rx] Allergies/Adverse Reactions: 3 Allergy/AdvReac Type Severity Reaction Status Date / Time acetaminophen [From Percocet] Allergy Itching Verified 02/16/18 23:30 Oxycodone [From Percocet] Allergy Itching Verified 02/16/18 23:30 Penicillins Allergy Hives Verified 02/16/18 23:30 cisplatin AdvReac See Verified 02/16/18 23:30 Comments Date of admission: 02/17/18 11:54 Primary care physician: Francesco Denton MD Consults: 02/17/18 14:55 Consult to Podiatry [CONS] Routine Consulting Provider: Pod[facility] Reason for Consult: Left ankle cellulitis/abscess Time Notified: 14:55 Call Completed: Yes Consult to Surgery [CONS] Routine Consulting Provider: Radha Vernon Reason for Consult: RUE abscess Time Notified: 14:55 Call Completed: Yes 02/19/18 10:57 Consult to Unemployment Claims Adjudicator [CONS] Routine Reason for SW Consult: Needs Home Health at home for dressing changes. Discharging clinician: Althea Browning Anticipated date of discharge: 02/20/18 - Constitutional Vitals: Temp Pulse Resp BP Pulse Ox 97.6 F 75 18 103/67 96 02/20/18 14:49 02/20/18 14:49 02/20/18 14:49 02/20/18 14:49 02/20/18 14:49 General appearance: Present: A&O X 3, answers questions appropriately Exam: . - Extremities Exam Extremities exam: Present: warm, radial pulses palpable and symmetrical. Absent : calf tenderness, cyanotic, pedal edema Additional comments: left medial ankle- small 1cm open wound with thick yellowish exudate; non-foul- smelling; improved surrounding cellulitis; Right posterior distal forearm, above elbow with packing intact; - Patient Status Disposition: Home, Self-Care Condition: Fair Functional capacity at discharge: independent ambulation Overall status at discharge: patient is progressing back to baseline - Discharge Instructions Follow Up With: Francesco Denton MD [Primary Care Provider] - Additional Instructions: F/up with Surgery- Radha Vernon in 1-2 weeks F/up with Podiatry in 1 week - Diet and Activity Activity: resume usual activities as tolerated, other (local wound care per Surgery and Podiatry notes) Diet: regular diet - VTE Reasons for not Prescribing Prophylaxis: Not indicated-Anticoagulated or INR therapeutic
[2018-02-20] MEDS: *HR* FentaNYL (PF) 100 MCG/2 ML VIAL IVP PRN (15:37)
[2018-02-20] MEDS ORDERED: Aminoglycoside Consult 1 EACH MC ONE (16:41)
== END 2018-02-20 16:42 | disposition home or self-care (01) | DRG 580 ==
LOC: EMEROOARM 23:24 → 3ANU 23:24 → SUATTDRO 02-17 11:54 → 3ANU 02-17 18:35
PROVIDERS: ADMIT Internal Medicine; ATTEND Internal Medicine